=== PATIENT | male | born 2000 | race Asian ===

== ENCOUNTER 2023-09-29 14:40 | Emergency (ER) | payer OTHER, SELFPAY ==
[2023-09-29 15:37] LABS: SARS-CoV-2 NAA Rapid Test Not Detected (NotDetected)
== END 2023-09-29 17:01 | disposition home or self-care (01) ==
LOC: ERS 14:40
DX: J06.9 Acute upper respiratory infection, unspecified (principal); H61.21 Impacted cerumen, right ear; J02.9 Acute pharyngitis, unspecified
CPT/HCPCS: 87081; 87430; 99283